=== PATIENT | female | born 1960 | race Caucasian/White ===

== ENCOUNTER 2017-08-21 16:45 | Emergency (ER) | payer BC, SELFPAY ==
[2017-08-21 17:35] LABS: #Basophils 0.1 thou/uL (0.0-0.2); #Eosinphils 0.4 thou/uL (0.0-0.7); #Lymphocytes 2.3 thou/uL (1.20-3.40); #Monocytes 0.4 thou/uL (0.11-0.59); #Neutrophils 3.7 thou/uL (1.40-6.50); %Basophils 0.9 % (0.0-1.0); %Lymphocytes 33.1 % (21.0-51.0); %Monocytes 5.5 % (0.0-10.0); %Neutrophils 54.6 % (42.0-75.0); Hemoglobin 11.4 g/dL (12.0-16.0); Mean Corpuscular HGB CONC 33.7 g/dL (32.0-36.0); Mean Corpuscular Hemoglobin 30.1 pg (27.0-31.0); Mean Corpuscular Volume 89.3 fl (81.0-99.0); Mean Platelet Volume 6.9 fL (7.4-10.4); Platelet Count 278 thou/uL (130-400); RBC Distribution Width 11.3 % (11.5-14.5); White Blood Cell (WBC) Count 6.8 thou/uL (4.8-10.8)
[2017-08-21 17:45] LABS: Bilirubin Small (Negative); Blood, Urine Negative (Negative); Clarity CLOUDY (Clear); Glucose, Urine (Dipstick) Negative (Negative); Leukocyte Moderate (Negative); Nitrite Positive (Negative); Protein, Urine (Dipstick) Trace mg/dL (Neg-Trace); Specific Gravity, Urine 1.033 (1.002-1.036); pH, Urine 5.5 (5.0-9.0)
[2017-08-21 17:48] LABS: Bacteria/HPF 4+ HPF (None Seen); Pathc Cast-AUWi Flag 1.88 (0-2.49)
[2017-08-21 17:57] LABS: ALT (SGPT) 22 U/L (8-55); AST (SGOT) 29 U/L (5-34); Albumin 4.4 g/dL (3.5-5.0); Alkaline Phosphatase 98 U/L (40-150); Anion Gap 8 mmol/L (10-20); BUN (Urea Nitrogen) 14 mg/dL (9.8-20.1); Bilirubin, Total 0.3 mg/dL (0.2-1.2); Calc. Creatinine Clearance 0 mL/min (70-130); Calcium 9.3 mg/dL (7.8-10.44); Carbon Dioxide 29 mmol/L (22-29); Chloride 107 mmol/L (98-107); Estimated GFR-MDRD 61; Globulin 3.1 g/dL (2.4-3.5); Glucose 109 mg/dL (70-105); Potassium 3.4 mmol/L (3.5-5.1); Protein, Total 7.5 g/dL (6.0-8.3); Sodium 141 mmol/L (136-145)
[2017-08-21 18:12] LABS: Crystals/HPF 2+ CA OXALATE HPF (Negative); Hyaline Casts/LPF 0-3 HYALINE CAST LPF (0-3 Hyaline); RBC/HPF None Seen HPF (0-3)
[2017-08-21] MEDS ORDERED: Ketorolac Tromethamine 30 MG/ML VIAL ONE (18:18)
[2017-08-21] MEDS ORDERED: cefTRIAXone\\ROCEPHIN 2 GM VIAL ONE (19:15)
--- NOTE | 2017-08-21 21:16 | CT ---
CT OF THE ABDOMEN AND PELVIS WITHOUT CONTRAST 08/21/17 COMPARISON: None. HISTORY: Back pain that has been happening for a while that has worsened recently. Left flank pain. TECHNIQUE: Multiple contiguous axial images were obtained in a CT of the abdomen and pelvis without contrast. Co suzie reformats were performed. FINDINGS: The patient has had prior gastric surgery. The liver, gallbladder, kidneys, adrenal glands, spleen, a nd pancreas are unremarkable, although evaluation is limited on this noncontrast examination. No calc ifications are seen in either ureter. There are phleboliths in the pelvis and along the course of the right ureter. The large and small bowel are unremarkable. No free air, free fluid, or stranding changes are seen in the abdomen or pelvis. The patient is status post hysterectomy. Atherosclerotic calcifications are s een in the aorta. No abdominal or pelvic lymphadenopathy are seen. Mild degenerative changes are seen in the spine. The visualized inferior thorax and abdominal wall soft tissues are unremarkable. IMPRESSION: No evidence of acute intra-abdominal/pelvic abnormality. POS: [facility]
== END 2017-08-21 20:10 | disposition home or self-care (01) ==
LOC: ERS 16:45
DX: N12 Tubulo-interstitial nephritis, not specified as acute or chronic (principal); I10 Essential (primary) hypertension; Z85.820 Personal history of malignant melanoma of skin; Z79.82 Long term (current) use of aspirin; Z79.899 Other long term (current) drug therapy
CPT/HCPCS: 74176; 80053; 81003; 81015; 83690; 85025; 87077; 87086; 87186; 96361; 96365; 96375; J0696; J1885

== ENCOUNTER 2018-06-21 10:42 | Outpatient (CLI) | payer OTHER ==
--- NOTE | 2018-06-21 12:21 | BD ---
DEXA BONE DENSITY STUDY: Date: 06/21/18 HISTORY: Postmenopausal. FINDINGS: Lumbar Spine: BMD (g/cm2) L1 1.012 T-Score: +0.2 L2 1.155 T-Score: +1.2 L3 1.169 T-Score: +0.8 L4 1.179 T-Score: +1.1 Total 1.134 T-Score: +0.8 Left Femoral Neck: 0.804 T-Score: -0.4 Total Femur: 0.978 T-Score: +0.3 IMPRESSION: Normal bone mineral density of the lumbar spine and left femoral neck. POS: [facility]
--- NOTE | 2018-06-26 18:22 | MMO ---
Bilateral MAMMO Bilat Screen [facility]. CLINICAL HISTORY: Patient is 57 years old and is seen for screening. The patient has no family history of breast cancer. The patient has a history of melanoma in 2016 and other cancer in 2007. VIEWS: The views performed were: bilateral craniocaudal with tomosynthesis and bilateral mediolateral oblique with tomosynthesis. FILMS COMPARED: The present examination has been compared to prior imaging studies performed at [facility] on 07/20/2000, 12/02/2002, 02/11/2004, 11/01/2005, 12/21/2006, 01/08/2012 and 05/21/2013. MAMMOGRAM FINDINGS: There are scattered fibroglandular densities. There are no suspicious masses, suspicious calcifications, or new areas of architectural distortion. IMPRESSION: THERE IS NO MAMMOGRAPHIC EVIDENCE OF MALIGNANCY. A ROUTINE FOLLOW-UP MAMMOGRAM IN 1 YEAR IS RECOMMENDED. THE RESULTS OF THIS EXAM WERE SENT TO THE PATIENT. ACR BI-RADS Category 1 - Negative MAMMOGRAPHY NOTE: 1. A negative mammogram report should not delay a biopsy if a dominant of clinically suspicious mass is present. 2. Approximately 10% to 15% of breast cancers are not detected by mammography. 3. Adenosis and dense breasts may obscure an underlying neoplasm.
== END 2018-06-21 10:43 | disposition home or self-care (01) ==
LOC: BICMAMMO 10:42
PROVIDERS: ATTEND Family Medicine
DX: Z12.31 Encounter for screening mammogram for malignant neoplasm of breast (principal); Z13.820 Encounter for screening for osteoporosis; E89.40 Asymptomatic postprocedural ovarian failure; Z85.820 Personal history of malignant melanoma of skin; Z85.89 Personal history of malignant neoplasm of other organs and systems
CPT/HCPCS: 77063; 77067; 77080

== ENCOUNTER 2020-05-31 10:01 | Outpatient (CLI) | payer BC | END 2020-05-31 10:02 | disposition home or self-care (01) | LOC: TBSIIMAG 10:01 | PROVIDERS: ATTEND Nurse Practitioner Family | DX: M50.123 Cervical disc disorder at C6-C7 level with radiculopathy (principal); M50.11 Cervical disc disorder with radiculopathy, high cervical region | CPT/HCPCS: 72141 ==

== ENCOUNTER 2021-02-20 19:30 | Outpatient (CLI) | payer BC | END 2021-02-20 19:31 | disposition home or self-care (01) | LOC: SLEEPLAB 19:30 | PROVIDERS: ATTEND Family Medicine | DX: G47.33 Obstructive sleep apnea (adult) (pediatric) (principal); G47.61 Periodic limb movement disorder; R53.83 Other fatigue; R09.89 Other specified symptoms and signs involving the circulatory and respiratory systems; R06.83 Snoring; I10 Essential (primary) hypertension; G47.00 Insomnia, unspecified; G47.10 Hypersomnia, unspecified | CPT/HCPCS: 95810 ==

== ENCOUNTER 2021-03-16 19:30 | Outpatient (CLI) | payer BC | END 2021-03-16 19:31 | disposition home or self-care (01) | LOC: SLEEPLAB 19:30 | PROVIDERS: ATTEND Family Medicine | DX: G47.33 Obstructive sleep apnea (adult) (pediatric) (principal); G47.61 Periodic limb movement disorder; R53.83 Other fatigue; R09.89 Other specified symptoms and signs involving the circulatory and respiratory systems; R06.83 Snoring; I10 Essential (primary) hypertension; G47.10 Hypersomnia, unspecified; E66.9 Obesity, unspecified; Z68.29 Body mass index [BMI] 29.0-29.9, adult | CPT/HCPCS: 95811 ==

== ENCOUNTER 2021-12-09 10:21 | Outpatient (CLI) | payer OTHER | END 2021-12-09 10:22 | disposition home or self-care (01) | LOC: BICMAMMO 10:21 | PROVIDERS: ATTEND Family Medicine | DX: Z12.31 Encounter for screening mammogram for malignant neoplasm of breast (principal); Z85.820 Personal history of malignant melanoma of skin | CPT/HCPCS: 77063; 77067 ==

== ENCOUNTER 2022-06-08 21:17 | Inpatient (IN) | payer OTHER ==
[2022-06-08] MEDS ORDERED: HYDROcodone/Acetaminophen 5/325 mg Tablet PO PRN (23:14)
[2022-06-08] MEDS ORDERED: Ondansetron PF 4 MG/2 ML Vial IVP PRN (23:14)
[2022-06-08] MEDS ORDERED: Ondansetron ODT 4 MG TAB PO PRN (23:14)
[2022-06-08] MEDS ORDERED: Nitroglycerin 0.4 MG TAB (25 Tab Bottle) SL PRN (23:15)
[2022-06-08] MEDS: Acetaminophen 325 MG TAB PO PRN (23:57)
[2022-06-09 00:07] LABS: Magnesium 1.9 mg/dL (1.6-2.6)
[2022-06-09 00:12] LABS: Troponin I Less than 0.010 ng/mL (< 0.028)
[2022-06-09 01:25] VITALS: BMI 30.6
[2022-06-09 05:12] LABS: Hemoglobin A1c 5.2 % (4.0-6.0)
[2022-06-09 05:14] LABS: #Basophils 0.1 thou/uL (0.0-0.2); #Eosinphils 0.2 thou/uL (0.0-0.7); #Lymphocytes 2.7 thou/uL (1.20-3.40); #Monocytes 0.4 thou/uL (0.11-0.59); #Neutrophils 3.2 thou/uL (1.40-6.50); %Basophils 0.8 % (0.0-1.0); %Eosinophils 2.4 % (0.0-10.0); %Lymphocytes 41.6 % (21.0-51.0); %Monocytes 5.7 % (0.0-10.0); %Neutrophils 49.5 % (42.0-75.0); Hemoglobin 11.5 g/dL (12.0-16.0); Mean Corpuscular HGB CONC 34.4 g/dL (32.0-36.0); Mean Corpuscular Hemoglobin 29.8 pg (27.0-31.0); Mean Corpuscular Volume 86.6 fl (78.0-98.0); Mean Platelet Volume 7.7 fL (7.4-10.4); Platelet Count 231 10x3/uL (130-400); RBC Distribution Width 12.5 % (11.5-14.5); Red Blood Cell (RBC) Count 3.85 mill/uL (4.20-5.40); White Blood Cell (WBC) Count 6.4 10x3/uL (4.8-10.8)
[2022-06-09 05:28] LABS: Anion Gap 13 mmol/L (10-20); BUN (Urea Nitrogen) 13 mg/dL (9.8-20.1); Calc. Creatinine Clearance 88 mL/min (70-130); Calcium 8.8 mg/dL (7.8-10.44); Carbon Dioxide 24 mmol/L (22-29); Cardiac Risk 2.8 (Less than 4.5); Chloride 108 mmol/L (98-107); Cholesterol 171 mg/dl (< 200 Desired); Estimated GFR 81; Glucose 84 mg/dL (70-105); HDL Cholesterol 62 mg/dL (>60 Neg Risk); LDL Cholesterol, Calculated 85 mg/dL; Potassium 3.7 mmol/L (3.5-5.1); Sodium 141 mmol/L (136-145); Triglycerides 118 mg/dL (Less than 150)
[2022-06-09] MEDS: Nitroglycerin 2% Ointment 1 INCH/1 GM Packet TOP SCH ×3 (06:50→21:36)
[2022-06-09] MEDS ORDERED: Amlodipine 10 MG TAB PO PRN (07:56)
[2022-06-09] MEDS: Amlodipine 10 MG TAB PO SCH (08:21)
[2022-06-09] MEDS: Famotidine 20 MG TAB PO SCH ×2 (08:22→20:02)
[2022-06-09] MEDS: Aspirin Chewable 81 MG TAB PO SCH (08:22)
[2022-06-09 08:45] LABS: Troponin I Less than 0.010 ng/mL (< 0.028)
[2022-06-09] MEDS ORDERED: ADENOSINE 60 MG/20 ML VIAL ONE (09:31)
[2022-06-09] MEDS ORDERED: rOPINIRole HCl 1 MG TAB PO SCH (21:00)
[2022-06-09] MEDS: Acetaminophen 325 MG TAB PO PRN (21:34)
[2022-06-10] MEDS: Nitroglycerin 2% Ointment 1 INCH/1 GM Packet TOP SCH ×3 (00:16→15:56)
[2022-06-10 04:53] LABS: Troponin I Less than 0.010 ng/mL (< 0.028)
[2022-06-10 09:06] LABS: #Basophils 0.1 thou/uL (0.0-0.2); #Eosinphils 0.1 thou/uL (0.0-0.7); #Lymphocytes 1.7 thou/uL (1.20-3.40); #Monocytes 0.2 thou/uL (0.11-0.59); #Neutrophils 2.4 thou/uL (1.40-6.50); %Basophils 1.4 % (0.0-1.0); %Eosinophils 2.7 % (0.0-10.0); %Lymphocytes 37.5 % (21.0-51.0); %Monocytes 4.3 % (0.0-10.0); Hemoglobin 12.3 g/dL (12.0-16.0); Mean Corpuscular HGB CONC 33.6 g/dL (32.0-36.0); Mean Corpuscular Volume 86.5 fl (78.0-98.0); Mean Platelet Volume 7.3 fL (7.4-10.4); Platelet Count 228 10x3/uL (130-400); RBC Distribution Width 12.3 % (11.5-14.5); Red Blood Cell (RBC) Count 4.24 mill/uL (4.20-5.40); White Blood Cell (WBC) Count 4.5 10x3/uL (4.8-10.8)
[2022-06-10] MEDS: Famotidine 20 MG TAB PO SCH (09:40)
[2022-06-10] MEDS: Amlodipine 10 MG TAB PO SCH (09:41)
[2022-06-10] MEDS: Aspirin Chewable 81 MG TAB PO SCH ×2 (09:41→09:54)
[2022-06-10 11:13] LABS: Calcium 9.6 mg/dL (7.8-10.44); Chloride 108 mmol/L (98-107); Potassium 3.9 mmol/L (3.5-5.1); Sodium 141 mmol/L (136-145)
[2022-06-10 11:14] LABS: Glucose 88 mg/dL (70-105)
[2022-06-10 11:15] LABS: Anion Gap 11 mmol/L (10-20); Carbon Dioxide 26 mmol/L (22-29)
[2022-06-10 11:17] LABS: Calc. Creatinine Clearance 82 mL/min (70-130); Estimated GFR 75
[2022-06-10 11:18] LABS: BUN (Urea Nitrogen) 14 mg/dL (9.8-20.1)
[2022-06-10 15:56] VITALS: BP 136/65; TEMP 98.2
[2022-06-11] MEDS ORDERED: Hydrochlorothiazide 25 MG TAB PO SCH (09:00)
== END 2022-06-10 18:25 | disposition home or self-care (01) | DRG 305 ==
LOC: 2SW 21:45 → OBSVTOIN 06-10 15:03
PROVIDERS: ADMIT Internal Medicine; ATTEND Internal Medicine
DX: I16.0 Hypertensive urgency (principal); R07.89 Other chest pain; Z20.822 Contact with and (suspected) exposure to COVID-19; G25.81 Restless legs syndrome; K21.9 Gastro-esophageal reflux disease without esophagitis; E66.9 Obesity, unspecified; G47.33 Obstructive sleep apnea (adult) (pediatric); F41.9 Anxiety disorder, unspecified; I10 Essential (primary) hypertension; Z68.30 Body mass index [BMI] 30.0-30.9, adult; Z99.89 Dependence on other enabling machines and devices; Z87.74 Personal history of (corrected) congenital malformations of heart and circulatory system; Z88.5 Allergy status to narcotic agent; Z79.899 Other long term (current) drug therapy; Z79.82 Long term (current) use of aspirin; Z85.820 Personal history of malignant melanoma of skin; Z90.710 Acquired absence of both cervix and uterus; Z82.49 Family history of ischemic heart disease and other diseases of the circulatory system
CPT/HCPCS: 36415; 78452; 80048; 80061; 83036; 83735; 83880; 84443; 84484; 85025; 85379; 93017; 93306; 94760; 96372; A9500; G0378; J1650; U0003; U0005

== ENCOUNTER 2022-11-08 12:35 | Emergency (ER) | payer OTHER, SELFPAY ==
[~2022-11-08 12:35] MED LIST: Iopamidol-370 76% 500 ML MDV (1 ML CHARGE) ONE
[2022-11-08 13:09] LABS: #Basophils 0.1 thou/uL (0.0-0.2); #Eosinphils 0.2 thou/uL (0.0-0.7); #Monocytes 0.5 thou/uL (0.11-0.59); #Neutrophils 6.6 thou/uL (1.40-6.50); %Basophils 0.8 % (0.0-1.0); %Eosinophils 1.8 % (0.0-10.0); %Lymphocytes 23.6 % (21.0-51.0); %Monocytes 5.6 % (0.0-10.0); %Neutrophils 67.8 % (42.0-75.0); Hematocrit 39.4 % (36.0-47.0); Hemoglobin 12.5 g/dL (12.0-16.0); Mean Corpuscular HGB CONC 31.7 g/dL (32.0-36.0); Mean Corpuscular Hemoglobin 27.8 pg (27.0-31.0); Mean Corpuscular Volume 87.6 fl (78.0-98.0); Mean Platelet Volume 9.5 fL (7.4-10.4); Platelet Count 313 10x3/uL (130-400); RBC Distribution Width 13.2 % (11.5-14.5); White Blood Cell (WBC) Count 9.7 10x3/uL (4.8-10.8)
[2022-11-08 13:16] LABS: Bacteria/HPF None Seen HPF (None Seen); Bilirubin 1+ (Negative); Blood, Urine Negative (Negative); CAUTI Indications for Culture Pelvic or flank pain; Clarity Clear (Clear); Glucose, Urine (Dipstick) Normal (Negative); Ketone, Urine Negative (Negative); Leukocyte Negative Leu/uL (Negative); Nitrite 1+ (Negative); Protein, Urine (Dipstick) Negative (Neg-Trace); RBC/HPF 0-3 HPF (0-3); Specific Gravity, Urine 1.006 (1.002-1.036); Squamous Epithelial 0-3 HPF (0-3); Urobilinogen Normal mg/dL (Less than 2); WBC/HPF 0-3 HPF (0-3); pH, Urine 6.5 (5.0-9.0)
[2022-11-08 13:17] LABS: Urine Culture Reflex No No
[2022-11-08 13:38] LABS: ALT (SGPT) 17 U/L (8-55); AST (SGOT) 20 U/L (5-34); Albumin 4.5 g/dL (3.5-5.0); Alkaline Phosphatase 102 U/L (40-110); Anion Gap 14 mmol/L (10-20); BUN (Urea Nitrogen) 16 mg/dL (9.8-20.1); Bilirubin, Total 0.4 mg/dL (0.2-1.2); Calc. Creatinine Clearance 0 mL/min (70-130); Calcium 9.4 mg/dL (7.8-10.44); Carbon Dioxide 28 mmol/L (22-29); Chloride 102 mmol/L (98-107); Estimated GFR 52; Globulin 3.6 g/dL (2.4-3.5); Glucose 111 mg/dL (70-105); Lipase 46 U/L (8-78); Potassium 3.2 mmol/L (3.5-5.1); Protein, Total 8.1 g/dL (6.0-8.3); Sodium 141 mmol/L (136-145)
[2022-11-08] MEDS ORDERED: Morphine 4 MG/ML VIAL ONE (14:25)
[2022-11-08] MEDS ORDERED: Ketorolac Tromethamine 30 MG/ML VIAL ONE (14:26)
[2022-11-08] MEDS ORDERED: Oxybutynin ER 5 MG TAB PO SCH (15:30)
== END 2022-11-08 17:49 | disposition home or self-care (01) ==
LOC: ERS 12:35
DX: N39.0 Urinary tract infection, site not specified (principal); R55 Syncope and collapse; I10 Essential (primary) hypertension
CPT/HCPCS: 74177; 80053; 81001; 83690; 85025; 96374; 96375; J1885; J2270; Q9967

== ENCOUNTER 2023-09-17 14:55 | Emergency (ER) | payer BC, MEDICARE, OTHER ==
[2023-09-17 15:42] LABS: #Basophils 0.05 10x3/uL (0.0-0.2); %Basophils 0.8 % (0.0-1.0); %Monocytes 5.1 % (0.0-10.0); %Neutrophils 55.9 % (42.0-75.0); Hematocrit 33.7 % (36.0-47.0); Hemoglobin 11.2 g/dL (12.0-16.0); Mean Corpuscular HGB CONC 33.2 g/dL (32.0-36.0); Mean Corpuscular Hemoglobin 28.9 pg (27.0-31.0); Mean Corpuscular Volume 86.9 fL (78.0-98.0); Mean Platelet Volume 9.9 fL (7.4-10.4); Platelet Count 214 10x3/uL (130-400); RBC Distribution Width 13.2 % (11.5-14.5); Red Blood Cell (RBC) Count 3.88 mill/uL (4.20-5.40)
[2023-09-17 16:00] LABS: ALT (SGPT) 16 U/L (8-55); AST (SGOT) 19 U/L (5-34); Albumin 3.7 g/dL (3.5-5.0); Alkaline Phosphatase 86 U/L (40-110); BUN (Urea Nitrogen) 12 mg/dL (9.8-20.1); Bilirubin, Total 0.4 mg/dL (0.2-1.2); Calc. Creatinine Clearance 0 mL/min (70-130); Calcium 8.7 mg/dL (7.8-10.44); Carbon Dioxide 24 mmol/L (22-29); Estimated GFR 62; Globulin 3.1 g/dL (2.4-3.5); Glucose 87 mg/dL (70-105); Lipase 33 U/L (8-78); Protein, Total 6.8 g/dL (6.0-8.3)
[2023-09-17 16:18] LABS: Troponin I Less than 0.010 ng/mL (< 0.028)
[2023-09-17 16:53] LABS: Anion Gap 15 mmol/L (10-20); Chloride 107 mmol/L (98-107); Potassium 3.8 mmol/L (3.5-5.1); Sodium 144 mmol/L (136-145)
[2023-09-17] MEDS ORDERED: Acetaminophen 500 MG TAB ONE (18:55)
[2023-09-17] MEDS ORDERED: diphenhydrAMINE 50 MG/ML VIAL ONE (18:55)
[2023-09-17] MEDS ORDERED: Metoclopramide HCl 10 MG (2 mL) VIAL ONE (18:56)
[2023-09-17] MEDS ORDERED: hydrALAZINE 20 MG/ML VIAL ONE (18:56)
[2023-09-17 20:28] LABS: Troponin I Less than 0.010 ng/mL (< 0.028)
== END 2023-09-17 21:12 | disposition home or self-care (01) ==
LOC: ERS 14:55
DX: I10 Essential (primary) hypertension (principal); R51.9 Headache, unspecified
CPT/HCPCS: 36415; 71045; 80053; 83690; 83880; 84443; 84484; 85025; 93005; 96365; 96366; 96375; J0360; J1200; J2765

== ENCOUNTER 2024-01-10 12:56 | Inpatient (IN) | payer OTHER ==
[2024-01-10] MEDS ORDERED: Ondansetron PF 4 MG/2 ML Vial ONE (13:33)
[2024-01-10] MEDS ORDERED: Morphine 4 MG/ML VIAL ONE ×2 (13:33→16:41)
[2024-01-10 13:47] LABS: #Basophils 0.05 10x3/uL (0.0-0.2); %Basophils 0.6 % (0.0-1.0); %Eosinophils 1.6 % (0.0-10.0); %Lymphocytes 29.8 % (21.0-51.0); %Monocytes 5.8 % (0.0-10.0); %Neutrophils 61.9 % (42.0-75.0); Hematocrit 37.1 % (36.0-47.0); Hemoglobin 12.2 g/dL (12.0-16.0); Mean Corpuscular HGB CONC 32.9 g/dL (32.0-36.0); Mean Corpuscular Hemoglobin 27.5 pg (27.0-31.0); Mean Corpuscular Volume 83.6 fL (78.0-98.0); Mean Platelet Volume 9.5 fL (7.4-10.4); Platelet Count 271 10x3/uL (130-400); RBC Distribution Width 13.2 % (11.5-14.5); Red Blood Cell (RBC) Count 4.44 mill/uL (4.20-5.40)
[2024-01-10 14:10] LABS: ALT (SGPT) 16 U/L (8-55); AST (SGOT) 21 U/L (5-34); Albumin 3.8 g/dL (3.4-4.8); Alkaline Phosphatase 91 U/L (40-110); Anion Gap 8 mmol/L (10-20); BUN (Urea Nitrogen) 17 mg/dL (9.8-20.1); Bilirubin, Total 0.3 mg/dL (0.2-1.2); Calc. Creatinine Clearance 0 mL/min (70-130); Calcium 9.2 mg/dL (7.8-10.44); Carbon Dioxide 36 mmol/L (23-31); Chloride 100 mmol/L (98-107); Estimated GFR 77; Globulin 3.4 g/dL (2.4-3.5); Glucose 85 mg/dL (80-115); Lipase 59 U/L (8-78); Protein, Total 7.2 g/dL (5.8-8.1); Sodium 141 mmol/L (136-145)
[2024-01-10 14:15] LABS: Bacteria/HPF None Seen HPF (None Seen); Bilirubin Negative (Negative); Blood, Urine Negative (Negative); CAUTI Indications for Culture Dysuria,urgency,freq; Clarity Clear (Clear); Glucose, Urine (Dipstick) Normal (Negative); Ketone, Urine Negative (Negative); Leukocyte 75 Leu/uL (Negative); Nitrite Negative (Negative); Protein, Urine (Dipstick) Negative (Neg-Trace); RBC/HPF 0-3 HPF (0-3); Squamous Epithelial 0-3 HPF (0-3); Urobilinogen Normal mg/dL (Less than 2); pH, Urine 7.5 (5.0-9.0)
[2024-01-10 14:16] LABS: Troponin I Less than 0.010 ng/mL (< 0.028)
[2024-01-10 14:17] LABS: Specific Gravity, Urine 1.004 (1.002-1.036)
[2024-01-10 14:18] LABS: Urine Culture Reflex No No
[2024-01-10] MEDS ORDERED: Potassium Bicarbonate/Cit Ac 20 MEQ TAB ONE (15:40)
[2024-01-10] MEDS ORDERED: Ondansetron ODT 4 MG TAB PO PRN (15:51)
[2024-01-10] MEDS ORDERED: Morphine 4 MG/ML VIAL SLOW IVP PRN (15:51)
[2024-01-10] MEDS ORDERED: hydrALAZINE 20 MG/ML VIAL SLOW IVP PRN (15:51)
[2024-01-10] MEDS ORDERED: Morphine 2 MG/ML VIAL SLOW IVP PRN (15:51)
[2024-01-10] MEDS ORDERED: Ondansetron PF 4 MG/2 ML Vial IVP PRN (15:51)
[2024-01-10 18:08] VITALS: BMI 30.5
[2024-01-10] MEDS: Pantoprazole 40 MG VIAL IVP SCH (19:54)
[2024-01-10] MEDS: Ketorolac Tromethamine 30 MG (1 mL) VIAL IVP SCH (19:54)
[2024-01-10] MEDS: Enoxaparin 40 MG (0.4 mL) SYRINGE SC SCH (22:05)
[2024-01-10] MEDS: Potassium Chloride 20 MEQ in Lactated Ringer's 1,000 ML IV SCH (22:05)
[2024-01-11] MEDS: Ketorolac Tromethamine 30 MG (1 mL) VIAL IVP SCH (02:34)
[2024-01-11 04:39] LABS: #Basophils 0.06 10x3/uL (0.0-0.2); %Eosinophils 3.6 % (0.0-10.0); %Lymphocytes 42.8 % (21.0-51.0); %Monocytes 7.5 % (0.0-10.0); %Neutrophils 44.9 % (42.0-75.0); Hemoglobin 11.7 g/dL (12.0-16.0); Mean Corpuscular HGB CONC 32.5 g/dL (32.0-36.0); Mean Corpuscular Hemoglobin 27.9 pg (27.0-31.0); Mean Corpuscular Volume 85.9 fL (78.0-98.0); Mean Platelet Volume 9.8 fL (7.4-10.4); Platelet Count 237 10x3/uL (130-400); RBC Distribution Width 13.3 % (11.5-14.5); Red Blood Cell (RBC) Count 4.19 mill/uL (4.20-5.40)
[2024-01-11 04:54] LABS: ALT (SGPT) 15 U/L (8-55); AST (SGOT) 18 U/L (5-34); Albumin 3.2 g/dL (3.4-4.8); Alkaline Phosphatase 83 U/L (40-110); Anion Gap 13 mmol/L (10-20); BUN (Urea Nitrogen) 16 mg/dL (9.8-20.1); Bilirubin, Total 0.4 mg/dL (0.2-1.2); Calc. Creatinine Clearance 69 mL/min (70-130); Calcium 8.6 mg/dL (7.8-10.44); Carbon Dioxide 32 mmol/L (23-31); Chloride 99 mmol/L (98-107); Estimated GFR 63; Glucose 83 mg/dL (80-115); Potassium 3.7 mmol/L (3.5-5.1); Protein, Total 6.2 g/dL (5.8-8.1); Sodium 140 mmol/L (136-145)
[2024-01-11] MEDS ORDERED: MD-Gastroview 120 ML BOT ONE (07:02)
[2024-01-11] MEDS: Pantoprazole 40 MG VIAL IVP SCH (09:14)
[2024-01-11] MEDS: Acetaminophen 325 MG TAB PO PRN (12:24)
[2024-01-11 13:06] VITALS: BP 120/78; TEMP 98.3
== END 2024-01-11 14:45 | disposition home or self-care (01) | DRG 392 ==
LOC: ERS 12:56 → SURG A 15:51
PROVIDERS: ADMIT Specialist; ATTEND Specialist
DX: R10.9 Unspecified abdominal pain (principal); I10 Essential (primary) hypertension; Z88.5 Allergy status to narcotic agent; Z85.828 Personal history of other malignant neoplasm of skin; Z90.710 Acquired absence of both cervix and uterus; Z79.899 Other long term (current) drug therapy; Z79.82 Long term (current) use of aspirin; G47.30 Sleep apnea, unspecified; Z99.89 Dependence on other enabling machines and devices; Z90.3 Acquired absence of stomach [part of]
CPT/HCPCS: 36415; 74019; 74177; 74250; 80053; 81001; 83605; 83690; 84484; 85025; 93005; 94060; 94726; 94729; 94760; 96374; 96375; 96376; J1650; J1885; J2272; J2405; J2470; J3480; J7120; Q9963; Q9967